=== PATIENT | female | born 1995 | race Hispanic/Latino ===

== ENCOUNTER 2017-10-17 07:46 | Emergency (ER) | payer MEDICAID ==
[~2017-10-17 07:46] MED LIST: PREN1TAB80 PO
== END 2017-10-17 08:58 | disposition home or self-care (01) ==
LOC: EDH 07:46
DX: R07.89 Other chest pain (principal); R00.2 Palpitations; Z98.890 Other specified postprocedural states; Z87.891 Personal history of nicotine dependence
CPT/HCPCS: 93005

== ENCOUNTER 2020-06-14 11:02 | Emergency (ER) | payer MEDICAID ==
[2020-06-14] MEDS ORDERED: SODIUM CHLORIDE 0.9% 1000ML 1,000 ML IV ONE (11:03)
[2020-06-14 11:48] LABS: BASOPHILS % (AUTO) 0.3 % (0.0-5.0); EOSINOPHILS % (AUTO) 0.3 % (0.0-8.0); HEMATOCRIT 28.2 % (36-48); LYMPHOCYTES % (AUTO) 18.7 % (21.0-51.0); MEAN CORPUSCULAR HEMOGLOBIN 29.4 pg (27.0-33.0); MEAN CORPUSCULAR HGB CONC 34.4 g/dL (32.0-36.0); MEAN CORPUSCULAR VOLUME 85.5 fL (79-99); MONOCYTES % (AUTO) 6.2 % (3.0-13.0); NEUTROPHILS % (AUTO) 74.1 % (40.0-77.0); PLATELET COUNT (AUTO) 244 K/uL (130-400); RED CELL DISTRIBUTION WIDTH 12.5 % (11.0-15.5); WHITE BLOOD COUNT (AUTO) 9.6 K/uL (4.8-10.8)
[2020-06-14 12:29] LABS: APPEARANCE,URINE TURBID (CLEAR); BILIRUBIN,URINE MODERATE (NEGATIVE); COLOR,URINE YELLOW (YELLOW); GLUCOSE, URINE (UA) NEGATIVE (NEGATIVE); KETONES,URINE 5 mg/dL (NEGATIVE); LEUKOCYTE ESTERASE ,URINE NEGATIVE (NEGATIVE); NITRATE,URINE NEGATIVE (NEGATIVE); OCCULT BLOOD,URINE LARGE (NEGATIVE); PH,URINE 5.5 (5.0-8.0); PROTEIN,URINE 30 mg/dL (NEGATIVE); UROBILINOGEN,URINE 0.2 mg/dL (0.2-1.0)
[2020-06-14 12:31] LABS: HCG,QUAL RESULT POSITIVE (NEGATIVE)
[2020-06-14 12:44] LABS: CREATININE 0.9 mg/dL (0.5-1.5); POTASSIUM 3.9 mmol/L (3.5-5.1)
[2020-06-14 13:08] LABS: BACTERIA,URINE Few /HPF (None Seen); RBC,URINE >100 /HPF (0-1); SQUAMOUS EPITHELIAL CELL,UR Few /HPF (0-2)
== END 2020-06-14 16:51 | disposition home or self-care (01) ==
LOC: EDH 11:02
DX: O20.0 Threatened abortion (principal); O26.891 Other specified pregnancy related conditions, first trimester; I95.1 Orthostatic hypotension; O9A.211 Injury, poisoning and certain other consequences of external causes complicating pregnancy, first trimester; S00.83XA Contusion of other part of head, initial encounter; Z3A.01 Less than 8 weeks gestation of pregnancy; W18.39XA Other fall on same level, initial encounter; Y93.89 Activity, other specified; Y92.89 Other specified places as the place of occurrence of the external cause; Y99.8 Other external cause status
CPT/HCPCS: 36415; 76817; 80048; 81001; 81025; 82550; 84484; 84702; 85025; 93005; 96360; 96361; 99285; J7030

== ENCOUNTER 2023-03-08 05:44 | Day surgery (SDC) | payer BC, MEDICAID ==
[2023-03-07 11:28] LABS: BASOPHILS % (AUTO) 0.3 % (0.0-5.0); EOSINOPHILS % (AUTO) 0.9 % (0.0-8.0); HEMATOCRIT 42.2 % (36-48); MEAN CORPUSCULAR HEMOGLOBIN 29.3 pg (27.0-33.0); MEAN CORPUSCULAR HGB CONC 33.2 g/dL (32.0-36.0); MEAN CORPUSCULAR VOLUME 88.3 fL (79-99); MONOCYTES % (AUTO) 6.6 % (3.0-13.0); NEUTROPHILS % (AUTO) 69.8 % (40.0-77.0); PLATELET COUNT (AUTO) 273 K/uL (130-400); RED BLOOD CELL COUNT(AUTO) 4.78 MIL/uL (4.00-5.50); RED CELL DISTRIBUTION WIDTH 12.2 % (11.0-15.5); WHITE BLOOD COUNT (AUTO) 7.7 K/uL (4.8-10.8)
[2023-03-07 11:39] VITALS: BP 109/72
[~2023-03-08] VITALS: Ht 165.1 cm; Wt 95.4 kg
[2023-03-08] VITALS (16 sets, daily range): BP systolic 97–116; BP diastolic 58–83
[2023-03-08] MEDS ORDERED: CEFAZOLIN SODIUM 2 GM VIAL ONE (06:11)
[2023-03-08] MEDS ORDERED: LACTATED RINGERS 1000ML 1,000 ML IV ONE (06:11)
[2023-03-08] MEDS ORDERED: FENTANYL CITRATE PF 50 MCG/1 ML 2ML VIAL ONE ×2 (06:22→06:32)
[2023-03-08] MEDS ORDERED: PROPOFOL 10 MG/ML 20ML VIAL IV ONE (06:22)
[2023-03-08] MEDS ORDERED: MIDAZOLAM HCL 1 MG/ML 2ML VIAL ONE (06:22)
[2023-03-08] MEDS ORDERED: ROCURONIUM 10MG/1ML SYR 10 MG/ML ML ONE (06:37)
[2023-03-08] MEDS ORDERED: OXYTOCIN 10 USP UNITS/ML ONE (06:38)
[2023-03-08] MEDS ORDERED: ONDANSETRON 4MG INJ ONE (06:38)
[2023-03-08] MEDS ORDERED: CEFAZOLIN SODIUM 2 GM VIAL IVPB ONE (06:50)
[2023-03-08] MEDS ORDERED: MEPERIDINE-PF 25 MG/ML SYG ONE ×2 (07:51→07:59)
== END 2023-03-08 09:10 | disposition home or self-care (01) ==
LOC: DAH 05:44
PROVIDERS: ATTEND Obstetrics & Gynecology
DX: O02.1 Missed abortion (principal); Z20.822 Contact with and (suspected) exposure to COVID-19; K21.9 Gastro-esophageal reflux disease without esophagitis
CPT/HCPCS: 85025; 87426; 36415 ×2; 59820; 86850; 86900; 86901; A6260; A4663; J7030; A4351 ×2; J7120; J3010 ×2; J2250; J2590; J2704; J2405; J2175 ×2; J0690 ×2; A4215; A4223; A4222; A4221; A4600

== ENCOUNTER 2023-12-02 17:24 | Observation (INO) | payer BC, MEDICAID ==
[~2023-12-02] VITALS: Ht 165.1 cm; Wt 95.2 kg
[2023-12-02 17:27] VITALS: BP 113/74; PULSE 81; RESP 16
[2023-12-02 17:56] LABS: APPEARANCE,URINE CLEAR (CLEAR); BILIRUBIN,URINE NEGATIVE (NEGATIVE); COLOR,URINE LIGHT-YELLOW (YELLOW); GLUCOSE, URINE (UA) NEGATIVE (NEGATIVE); KETONES,URINE NEGATIVE (NEGATIVE); LEUKOCYTE ESTERASE ,URINE 75 Leu/uL (NEGATIVE); NITRATE,URINE NEGATIVE (NEGATIVE); OCCULT BLOOD,URINE NEGATIVE (NEGATIVE); PROTEIN,URINE NEGATIVE (NEGATIVE); UROBILINOGEN,URINE 0.2 mg/dL (0.2-1.0)
[2023-12-02 17:57] LABS: ADD UA MICROSCOPIC YES
[2023-12-02 17:59] LABS: BACTERIA,URINE FEW /HPF (None Seen); SQUAMOUS EPITHELIAL CELL,UR FEW /HPF (0-2); UNCLASSIFIED CRYSTAL 2 /HPF (None Seen)
[2023-12-02] MEDS: TERBUTALINE SULFATE VIAL 1MG/ML SQ PRN (20:59)
== END 2023-12-02 22:17 | disposition home or self-care (01) ==
LOC: EDH 17:24 → LDH 17:25
PROVIDERS: ADMIT Obstetrics & Gynecology; ATTEND Obstetrics & Gynecology
DX: O26.893 Other specified pregnancy related conditions, third trimester (principal); R10.9 Unspecified abdominal pain; R10.2 Pelvic and perineal pain; Z3A.29 29 weeks gestation of pregnancy
CPT/HCPCS: 96372; 87088; 81001; 76805; G0378 ×5; G0379; J3105

== ENCOUNTER 2024-01-22 16:06 | Observation (INO) | payer BC, MEDICAID ==
[~2024-01-22] VITALS: Ht 165.1 cm; Wt 95.3 kg
[2024-01-22 16:11] VITALS: BP 109/60; PULSE 109; RESP 60; O2SAT 98
[2024-01-22 16:56] LABS: APPEARANCE,URINE CLOUDY (CLEAR); BILIRUBIN,URINE NEGATIVE (NEGATIVE); COLOR,URINE YELLOW (YELLOW); GLUCOSE, URINE (UA) NEGATIVE (NEGATIVE); KETONES,URINE NEGATIVE (NEGATIVE); LEUKOCYTE ESTERASE ,URINE 500 Leu/uL (NEGATIVE); NITRATE,URINE NEGATIVE (NEGATIVE); OCCULT BLOOD,URINE NEGATIVE (NEGATIVE); PROTEIN,URINE 20 mg/dL (NEGATIVE); UROBILINOGEN,URINE 0.2 mg/dL (0.2-1.0)
[2024-01-22 16:57] LABS: ADD UA MICROSCOPIC YES
[2024-01-22 17:00] LABS: BACTERIA,URINE FEW /HPF (None Seen); MUCUS,URINE RARE LPF (None Seen); SQUAMOUS EPITHELIAL CELL,UR FEW /HPF (0-2); UNCLASSIFIED CRYSTAL 1 /HPF (None Seen)
[2024-01-22] MEDS: LACTATED RINGERS 1000ML IV PRN (17:55)
[2024-01-22] MEDS: TERBUTALINE SULFATE VIAL 1MG/ML SQ PRN (19:29)
== END 2024-01-22 21:30 | disposition home or self-care (01) ==
LOC: EDH 16:06 → WSH 16:41
PROVIDERS: ADMIT Obstetrics & Gynecology; ATTEND Obstetrics & Gynecology
DX: O26.893 Other specified pregnancy related conditions, third trimester (principal); R42 Dizziness and giddiness; R10.9 Unspecified abdominal pain; O99.613 Diseases of the digestive system complicating pregnancy, third trimester; K59.00 Constipation, unspecified; Z3A.36 36 weeks gestation of pregnancy
CPT/HCPCS: 96372; 96360; 96361; 87088; 81001; G0378 ×5; G0379; J3105; J7120 ×2

== ENCOUNTER 2024-01-24 13:27 | Observation (INO) | payer BC, MEDICAID ==
[~2024-01-24] VITALS: Ht 165.1 cm; Wt 95.3 kg
[2024-01-24 13:49] VITALS: BP 144/60; PULSE 77; RESP 20
== END 2024-01-24 17:31 | disposition home or self-care (01) ==
LOC: EDH 13:27 → LDH 13:45
PROVIDERS: ADMIT Obstetrics & Gynecology; ATTEND Obstetrics & Gynecology
DX: O26.893 Other specified pregnancy related conditions, third trimester (principal); R10.30 Lower abdominal pain, unspecified; Z3A.37 37 weeks gestation of pregnancy
CPT/HCPCS: 81001; 76819; G0378 ×3; G0379; 59025